=== PATIENT | male | born 1955 | race Caucasian/White ===

== ENCOUNTER 2017-03-04 15:10 | Inpatient (IN) | payer BC, OTHER ==
[~2017-03-04] VITALS: Ht 175.3 cm; Wt 115.3 kg
[2017-03-04] MEDS ORDERED: ACETAMINOPHEN 325 MG TAB PO ONE (15:30)
[2017-03-04 16:52] LABS: Basophils # (auto) 0 uL; Basophils % (auto) 0.5 % (0.0-2.0); Eosinophils # (auto) 0 uL; Eosinophils % (auto) 0.1 % (0.0-7.0); Hematocrit 44.7 % (41.0-53.0); Hemoglobin 15.4 g/dL (13.5-17.5); Lymphocytes # (auto) 0.4 uL; Lymphocytes % (auto) 4.4 % (10.0-50.0); Mean Corpuscular Hemoglobin 29.3 pg (28.0-32.0); Mean Corpuscular Hgb Conc. 34.4 g/dL (32.0-36.0); Mean Corpuscular Volume 85.3 fL (80.0-100.0); Monocytes # (auto) 1.1 uL; Monocytes % (auto) 11.4 % (0.0-12.0); Neutrophils # (auto) 8.1 uL; Neutrophils % (auto) 83.6 % (37.0-80.0); Platelet Count (auto) 183 10^3/uL (140-450); Red Blood Cells 5.24 10^6/uL (4.5-5.90); Red Cell Distribution Width 13.1 % (11.8-14.3); White Blood Cell 9.6 10^3/uL (4.4-10.8)
[2017-03-04 17:07] LABS: INR 1.07 (0.9-1.15); Partial Thromboplastin Time 28.3 sec (22.64-33.71); Prothrombin Time 11.7 sec (9.37-12.3)
[2017-03-04 17:16] LABS: BUN/Creatinine Ratio 17.1; Bilirubin, Total 1.1 mg/dL (0.2-1.0); Calcium 8.5 mg/dL (8.5-10.1); Magnesium 2.2 mg/dL (1.6-2.6); Potassium 4.1 mmol/L (3.5-5.1); Total Protein 7.3 g/dL (6.4-8.2)
[2017-03-04] MEDS ORDERED: ASPirin 81 mg TAB PO ONE ×2 (19:00→19:30)
[2017-03-04] MEDS ORDERED: cefTRIAXone 1GM/10ml IVPUSH 10 ML IV ONE (19:00)
[2017-03-04] MEDS ORDERED: CLOPIDOGREL BISULFATE 75 MG TAB PO ONE (19:30)
[2017-03-04] MEDS ORDERED: MORPHINE SULFATE 10 MG/ML INJ 1ML SDV IV PRN ×2 (21:45)
[2017-03-04] MEDS ORDERED: HYDROcodone-ACET 5/325MG TAB PO PRN (21:45)
[2017-03-04] MEDS ORDERED: NITROGLYCERIN 0.4 MG SL TAB SL PRN (21:45)
[2017-03-04] MEDS ORDERED: ACETAMINOPHEN 500 MG TAB PO PRN (21:45)
[2017-03-04] MEDS ORDERED: ATORVASTATIN 20 MG TAB PO SCH (22:00)
[2017-03-04] MEDS: METOPROLOL TARTRATE 25 MG TAB PO SCH (22:00)
[2017-03-05 05:01] VITALS: BP 125/70
[2017-03-05 05:17] VITALS: BP 125/72
[2017-03-05 08:00] VITALS: BP 121/62
[2017-03-05 08:42] LABS: Albumin 3.6 g/dL (3.4-5.0); BUN/Creatinine Ratio 19.4; Bilirubin, Total 0.9 mg/dL (0.2-1.0); Calcium 8.4 mg/dL (8.5-10.1); Potassium 4.2 mmol/L (3.5-5.1); Total Protein 6.8 g/dL (6.4-8.2)
[2017-03-05] MEDS: METOPROLOL TARTRATE 25 MG TAB PO SCH ×2 (10:00→21:54)
[2017-03-05] MEDS: ASPirin-EC 81 mg tab PO SCH (10:18)
[2017-03-05] MEDS ORDERED: CLOPIDOGREL BISULFATE 75 MG TAB PO ONE (10:45)
[2017-03-05] MEDS: SODIUM CHLORIDE 0.9% 1,000 ML IV SCH ×2 (11:00→23:58)
[2017-03-05 11:59] LABS: Urine Bacteria NONE SEEN /hpf (None Seen); Urine Blood Negative /uL (Negative); Urine Specific Gravity 1.008 (1.001-1.035); Urine WBC 1 /hpf (0 - 3)
[2017-03-05 12:00] VITALS: BP 147/78
[2017-03-05 16:50] VITALS: BP 129/67
[2017-03-05] MEDS: ATORVASTATIN 20 MG TAB PO SCH (21:51)
[2017-03-05 22:00] VITALS: BP 115/69
[2017-03-06 05:00] VITALS: BP 133/54
[2017-03-06] MEDS ORDERED: LIDOCAINE 2%HCL (LOCAL ANESTH.) INJ 20ML MDV ONE (08:14)
[2017-03-06] MEDS ORDERED: IOHEXOL 350 MG/ML 100ML IJ ONE ×2 (08:14→09:22)
[2017-03-06 09:00] VITALS: BP 123/50
[2017-03-06] MEDS ORDERED: VERAPAMIL 2.5MG/ML INJ 2ML VIAL IV ONE (09:06)
[2017-03-06] MEDS ORDERED: MIDAZOLAM HCL 1MG/1ML-2 ML VIAL ONE (09:06)
[2017-03-06] MEDS ORDERED: ANGIOMAX 250 MG VIAL IV ONE ×2 (09:06→09:23)
[2017-03-06] MEDS ORDERED: fentaNYL CITRATE 100 MCG/2 ML VL ONE (09:06)
[2017-03-06] MEDS ORDERED: HEPARIN 1,000 UNITS/ml 1ML VIAL ONE (09:27)
[2017-03-06] MEDS: METOPROLOL TARTRATE 25 MG TAB PO SCH ×2 (10:00→22:00)
[2017-03-06] MEDS: CLOPIDOGREL BISULFATE 75 MG TAB PO SCH (10:32)
[2017-03-06] MEDS: ASPirin-EC 81 mg tab PO SCH (10:32)
[2017-03-06] MEDS ORDERED: SODIUM CHLORIDE 0.9% 1,000 ML IV SCH (12:04)
[2017-03-06] MEDS: SODIUM CHLORIDE 0.9% 1,000 ML IV SCH (13:39)
[2017-03-06 17:07] VITALS: BP 130/57
[2017-03-06 22:00] VITALS: BP 149/76
[2017-03-06] MEDS: ATORVASTATIN 20 MG TAB PO SCH (22:27)
[2017-03-07] MEDS: SODIUM CHLORIDE 0.9% 1,000 ML IV SCH (02:45)
[2017-03-07 04:43] VITALS: BP 122/69
[2017-03-07 09:40] VITALS: BP 118/72
[2017-03-07] MEDS: METOPROLOL TARTRATE 25 MG TAB PO SCH (10:00)
[2017-03-07] MEDS: CLOPIDOGREL BISULFATE 75 MG TAB PO SCH (11:45)
[2017-03-07] MEDS: ASPirin-EC 81 mg tab PO SCH (11:45)
[2017-03-07 11:47] VITALS: BP 118/72
[2017-03-07 12:23] VITALS: BP 118/72
== END 2017-03-07 12:23 | disposition home or self-care (01) | DRG 247 ==
LOC: ER 15:29 → EDBD 15:29 → TELE 15:30 → DOU IN ICU 03-05 04:31 → TELE-WESTW 03-05 13:47
PROVIDERS: ADMIT Nurse Practitioner Family; ATTEND Internal Medicine
PROC: 027034Z Dilation of Coronary Artery, One Artery with Drug-eluting Intraluminal Device, Percutaneous Approach (ICD-10-PCS; principal; 2017-03-06)
PROC: 4A023N7 Measurement of Cardiac Sampling and Pressure, Left Heart, Percutaneous Approach (ICD-10-PCS; 2017-03-06)
PROC: B2111ZZ Fluoroscopy of Multiple Coronary Arteries using Low Osmolar Contrast (ICD-10-PCS; 2017-03-06)
DX: I21.9 Acute myocardial infarction, unspecified (principal); E16.2 Hypoglycemia, unspecified; I25.10 Atherosclerotic heart disease of native coronary artery without angina pectoris; E66.9 Obesity, unspecified; E78.5 Hyperlipidemia, unspecified; I10 Essential (primary) hypertension; R74.8 Abnormal levels of other serum enzymes; I49.3 Ventricular premature depolarization; E78.00 Pure hypercholesterolemia, unspecified; Z68.37 Body mass index [BMI] 37.0-37.9, adult; Z88.1 Allergy status to other antibiotic agents; Z95.5 Presence of coronary angioplasty implant and graft
CPT/HCPCS: 36415; 36600; 70450; 71046; 80053; 80061; 81001; 82550; 82805; 83605; 83735; 84484; 85025; 85610; 85730; 86141; 86850; 86900; 86901; 87040; 92928; 93005; 93306; 93458; 93886; 96374; 99152; 99153; C1874; J2250